=== PATIENT | male | born 1960 ===

== ENCOUNTER 2018-10-26 14:05 | Day surgery (SDC) | payer BC ==
[2018-10-26] MEDS ORDERED: LIDOCAINE 2% MDV (20MG/ML) 20ML VIAL IV ONE (14:06)
[2018-10-26] MEDS ORDERED: PROPOFOL 10 MG/ML VIAL IV ONE (14:06)
[2018-10-26] MEDS ORDERED: MIDAZOLAM HCL 2MG/2ML VIAL IV ONE (14:06)
--- NOTE | 2018-10-27 12:20 | Operative Note ---
OPERATION: COLONOSCOPY with cold forceps polypectomy. PREOPERATIVE DIAGNOSIS: Change in bowel habits and right lower quadrant pain. POSTOPERATIVE DIAGNOSIS: Ascending colon polyp, otherwise normal exam, normal terminal ileum. PREPARATION QUALITY: Excellent. ESTIMATED BLOOD LOSS: Minimal. SPECIMENS: Ascending colon. COMPLICATIONS: None apparent. PROCEDURE: After informed consent was obtained from the patient, he was placed in the left lateral decubitus position in the endoscopy suite, sedated and monitored by the department of anesthesia. Digital rectal examination was unremarkable. A well-lubricated [id number] colonoscope was inserted into the rectum and advanced to the cecum. The cecum, cecal bulb, ileocecal valve, and appendiceal orifice were unremarkable. Ileocecal valve itself was cannulated revealing a normal-appearing distal terminal ileum. In the ascending colon, there was a diminutive polyp removed with a cold forceps. A second look at the cecum was unremarkable. The remainder of the ascending colon, transverse colon, descending colon, sigmoid colon, and rectum were unrevealing. Forward and J-turn views of the rectum and anorectum were unremarkable. The endoscope was straightened, the rectal ampulla deflated, and the endoscope was removed. RECOMMENDATIONS: The patient should add a fiber supplement to his regimen such as Citrucel or Benefiber. He will require repeat colonoscopy in 5 years pending tissue histology. As always, thank you for allowing me to participate in the healthcare of your patients. CC: DO JEFFREY Chávez
== END 2018-10-26 15:45 | disposition home or self-care (01) ==
LOC: HOP 14:05
PROVIDERS: ATTEND Internal Medicine Gastroenterology
DX: R19.4 Change in bowel habit (principal); R10.31 Right lower quadrant pain; D12.2 Benign neoplasm of ascending colon; I10 Essential (primary) hypertension